=== PATIENT | female | born 1960 | race Asian ===

== ENCOUNTER 2022-04-05 15:26 | Outpatient (CLI) | payer BC | END 2022-04-05 15:27 | disposition home or self-care (01) | LOC: CSHMAMMO 15:26 | PROVIDERS: ATTEND Family Medicine Sports Medicine | DX: Z12.31 Encounter for screening mammogram for malignant neoplasm of breast (principal); Z13.820 Encounter for screening for osteoporosis; M85.89 Other specified disorders of bone density and structure, multiple sites; Z78.0 Asymptomatic menopausal state | CPT/HCPCS: 77063; 77067; 77080 ==

== ENCOUNTER 2023-06-10 07:32 | Outpatient (CLI) | payer BC | END 2023-06-10 07:33 | disposition home or self-care (01) | LOC: CSHMAMMO 07:32 | PROVIDERS: ATTEND Family Medicine Sports Medicine | DX: Z12.31 Encounter for screening mammogram for malignant neoplasm of breast (principal) | CPT/HCPCS: 77063; 77067 ==